=== PATIENT | male | born 1970 | race Caucasian/White ===

== ENCOUNTER 2019-11-20 15:59 | Emergency (ER) | payer BC ==
[2019-11-20 16:07] VITALS: TEMP 97.9
[2019-11-20 17:22] VITALS: RESP 20
--- NOTE | 2019-11-20 17:27 | XR ---
EXAMINATION TYPE: XR chest 1V DATE OF EXAM: 11/20/2019 COMPARISON: NONE HISTORY: Fever and cough TECHNIQUE: Single view FINDINGS: There is no heart failure nor confluent pneumonic infiltrate. Costophrenic angles are clear . Bony thorax is intact. Heart size is normal. IMPRESSION: No active cardiopulmonary disease. Normal heart.
--- NOTE | 2019-11-20 17:42 | ED ---
General Adult HPI - General Chief complaint: Shortness of Breath Stated complaint: fever/cough/SOB Time Seen by Provider: 11/20/19 16:11 Source: patient, RN notes reviewed, old records reviewed Mode of arrival: ambulatory Limitations: no limitations - History of Present Illness Initial comments: 49-year-old male patient presents to ED for evaluation of shortness of breath. Patient put the last 5 days she's been having coughing or shortness of breath. Patient was tested by his primary care provider on Saturday for coronavirus. Patient reports that he has a pulse ox at home and when he is walking around [place]. He Was Then Advised Come to ER by His Primary Care Provider. Patient Denies Any Chest Pain. Reports That upon arrival to shortness of breath is significantly improved and he does not believe he needs to be here. Systemic: Pt denies fatigue, fever/chills, rash. Pt denies weakness, night sweats, weight loss. Neuro: Pt denies headache, visual disturbances, syncope or pre-syncope. HEENT: Pt denies ocular discharge or irritation, otalgia, rhinorrhea, pharyngitis or notable lymphadenopathy. Cardiopulmonary: Pt denies chest pain, heart palpitations, dyspnea on exertion. Abdominal/GI: Pt denies abdominal pain, n/v/d. : Pt denies dysuria, burning w/ urination, frequency/urgency. Denies new onset urinary or bowel incontinence. MSK: Pt denies myalgia, loss of strength or function in extremities. Neuro: Pt denies new onset weakness, paresthesias. - Related Data Previous Rx's Medication Instructions Recorded Albuterol Inhaler [Ventolin Hfa 1 - 2 puff INHALATION Q4-6H PRN #1 11/20/19 Inhaler] inhaler Allergies Allergy/AdvReac Type Severity Reaction Status Date / Time No Known Allergies Allergy Verified 11/20/19 16:07 Review of Systems ROS Statement: Those systems with pertinent positive or pertinent negative responses have been documented in the HPI. ROS Other: All systems not noted in ROS Statement are negative. Past Medical History Past Medical History: No Reported History Additional Past Surgical History / Comment(s): 5 surgerys on left shoulder Past Psychological History: No Psychological Hx Reported Smoking Status: Former smoker Past Alcohol Use History: Occasional Past Drug Use History: None Reported General Exam - General Exam Comments Initial Comments: Constitutional: NAD, AOX3, Pt has pleasant affect. HEENT: NC/AT, trachea midline, neck supple, no lymphadenopathy. Posterior pharynx non erythematous, without exudates. External ears appear normal, without discharge. Mucous membranes moist. Eyes PERRLA, EOM intact. There is no scleral icterus. No pallor noted. Cardiopulmonary: RRR, no murmurs, rubs or gallops, no JVD noted. Mild wheezing noted posterior cowart.. No peripheral edema. Abdominal exam: Abdomen soft and non-distended. Abdomen non-tender to palpation in all 4 quadrants. Bowel sounds active in LLQ. No hepatosplenomegaly. No ecchymosis Neuro: CN II-XII grossly intact. No nuchal rigidity. No raccon eyes, no maciel sign, no hemotympanum. No cervical spinal tenderness. MSK: No posterior calf tenderness bilaterally, homans sign negative bilaterally. Posterior tibialis and radial pulse +2 bilaterally. Sensation intact in upper and lower extremities. Full active ROM in upper and lower extremities, 5/5 stregnth. Limitations: no limitations Course Vital Signs 11/20/19 11/20/19 11/20/19 16:01 16:07 17:07 Temperature 97.9 F Pulse Rate 83 78 Respiratory 16 20 20 Rate Blood Pressure 162/81 152/71 O2 Sat by Pulse 97 96 Oximetry 11/20/19 11/20/19 17:56 17:59 Temperature Pulse Rate 75 Respiratory 20 20 Rate Blood Pressure 132/81 O2 Sat by Pulse 96 Oximetry Medical Decision Making - Medical Decision Making 49-year-old male patient presents to ED for evaluation of shortness of breath. Patient put the last 5 days she's been having coughing or shortness of breath. Patient was tested by his primary care provider on Saturday for coronavirus. Patient reports that he has a pulse ox at home and when he is walking around [place]. He Was Then Advised Come to ER by His Primary Care Provider. Patient Denies Any Chest Pain. Reports That upon arrival to shortness of breath is significantly improved and he does not believe he needs to be here. Patient will send her stable, afebrile. Pulse oxygenation at rest and ambulatory is 96 present. Patient continues to deny any shortness of breath. Patient declines breathing treatment here. Chest x-ray did not display any acute process. Patient will be discharged will continue to self quarentine himself and will follow up with primary care provider with results of this test and return to ER if condition worsens. Case discussed with Dr. Black. Disposition Clinical Impression: Cough, Fever, Suspected [place] coronavirus infection Disposition: HOME SELF-CARE Condition: Stable Instructions (If sedation given, give patient instructions): Acute Cough (ED) Additional Instructions: Follow-up with primary care provider tomorrow via telephone. Continue to monitor symptoms at home. Use Tylenol as needed for fever. Use inhaler as needed for wheezing. Self isolated for the next 14 days. Return to ER if condition worsens. Prescriptions: Albuterol Inhaler [Ventolin Hfa Inhaler] 1 - 2 puff INHALATION Q4-6H PRN #1 inhaler PRN Reason: Cough Is patient prescribed a controlled substance at d/c from ED?: No Referrals: Abdelrahman De La Fuente MD [Primary Care Provider] - 1-2 days
[2019-11-20 17:56] VITALS: BP 132/81; PULSE 75
== END 2019-11-20 18:00 | disposition home or self-care (01) ==
LOC: EC 15:59
DX: R05 Cough (principal); R50.9 Fever, unspecified; R06.02 Shortness of breath; Z20.828 Contact with and (suspected) exposure to other viral communicable diseases; Z87.891 Personal history of nicotine dependence
CPT/HCPCS: 71045; 99285

== ENCOUNTER → 2021-10-20 | Outpatient (CLI) | payer BC ==
--- NOTE | 2021-10-20 19:51 | CT ---
EXAMINATION TYPE: CT abdomen pelvis wo con DATE OF EXAM: 10/20/2021 COMPARISON: None HISTORY: RLQ pain CT DLP: 607.8 mGycm Automated exposure control for dose reduction was used. Images obtained from the diaphragm to the floor the pelvis with oral contrast only. There is subsegmental atelectasis at the lung bases. Heart size is normal. There are no hilar masses. Costophrenic angles are clear. There is no pericardial effusion. Liver spleen and stomach pancreas and gallbladder appear normal. The bile ducts are not dilated. There is no adrenal mass. Kidneys have normal size. There is no hydronephrosis. The ureters are not d ilated. There is no retroperitoneal adenopathy. Bladder distends smoothly. There is no inguinal herni a. Appendix is posterior and appears normal. There is no mesenteric edema. There is no ascites or nguyễn e air. There is no bowel obstruction. There is no evidence of a pelvic mass. Lumbar vertebrae have normal alignment. There is no acute compression fracture. Posterior elements ar e intact. There is 15% anterior wedging of L1 vertebra that appears old. The bony pelvis is intact. T he hip joints are intact. IMPRESSION: Mild subsegmental atelectasis at the lung bases. No acute abnormality within the abdomen and pelvis. Normal appendix. No renal stone or obstruction.
== END | disposition home or self-care (01) ==
LOC: RADCTMAIN 16:24
PROVIDERS: ATTEND Family Medicine
DX: R10.31 Right lower quadrant pain (principal); J98.11 Atelectasis
CPT/HCPCS: 74176

== ENCOUNTER 2021-11-30 09:06 | Day surgery (SDC) | payer BC ==
[2021-11-28 11:54] VITALS: BMI 25.5
[~2021-11-30 09:06] MED LIST: LACTATED RINGERS 1,000 ML IV SCH
[2021-11-30 10:01] VITALS: RESP 16; TEMP 97.6
[2021-11-30] MEDS ORDERED: LIDOCAINE 1% (10MG/ML) FOR IV START INTRADERMA ONE (10:13)
[2021-11-30] MEDS ORDERED: PROPOFOL 10 MG/ML 20 ML VIAL IV ONE (10:31)
--- NOTE | 2021-11-30 10:32 | P.GSHP ---
History of Present Illness H&P Date: 11/30/21 Chief Complaint: GI bleed. Is a 51-year-old male presents today for colonoscopy. Patient's had issues with GI bleed. Past Medical History Past Medical History: No Reported History Additional Past Medical History / Comment(s): hx recent elevated BS History of Any Multi-Drug Resistant Organisms: None Reported Past Surgical History: Orthopedic Surgery Additional Past Surgical History / Comment(s): 5 surgerys on left shoulder Past Anesthesia/Blood Transfusion Reactions: No Reported Reaction Smoking Status: Former smoker - Past Family History Mother Family Medical History: No Reported History Medications and Allergies Home Medications Medication Instructions Recorded Confirmed Type Ibuprofen [Motrin Ib] 200 - 800 mg PO DIRECTED PRN 11/28/21 11/30/21 History Allergies Allergy/AdvReac Type Severity Reaction Status Date / Time No Known Allergies Allergy Verified 11/30/21 09:57 Surgical - Exam Vital Signs Temp Pulse Resp BP Pulse Ox 97.6 F 84 16 119/82 95 11/30/21 09:56 11/30/21 09:56 11/30/21 09:56 11/30/21 09:56 11/30/21 09:56 - General well developed, well nourished, no distress - Eyes PERRL - ENT normal pinna - Neck no masses - Respiratory normal expansion - Cardiovascular Rhythm: regular - Abdomen Abdomen: soft, non tender Assessment and Plan Assessment: GI bleed. We'll perform colonoscopy
--- NOTE | 2021-11-30 10:42 | P.OP ---
Date of Procedure: 11/30/21 Preoperative Diagnosis: GI bleed Postoperative Diagnosis: Internal hemorrhoids Procedure(s) Performed: Colonoscopy Anesthesia: MAC Surgeon: Grabiel Scott Pathology: none sent Condition: stable Disposition: PACU Description of Procedure: The patient's placed on the endoscopy table in the lateral position. He received IV sedation. Digital rectal exam was performed. This revealed internal hemorrhoids. Flexible colonoscope was then placed patient anus and passed throughout the entire colon. The ileocecal valve was visualized. Cecum, ascending and transverse colon appeared normal. The descending and sigmoid colon appeared normal. The scope was then brought back the rectum and this appeared normal. The scope withdrawn for patient.
[2021-11-30 11:09] VITALS: BP 138/79; PULSE 65
== END 2021-11-30 11:24 | disposition home or self-care (01) ==
LOC: ORWHC2ENDO 09:06
PROVIDERS: ATTEND Surgery
DX: K64.8 Other hemorrhoids (principal); Z98.890 Other specified postprocedural states; Z87.891 Personal history of nicotine dependence
CPT/HCPCS: 45378; J2704

== ENCOUNTER 2023-06-29 16:18 | Observation (INO) | payer BC, MEDICARE ==
[2023-06-29] MEDS ORDERED: KETOROLAC 15 MG/ML 1 ML VIAL IVP STA (16:40)
[2023-06-29] MEDS ORDERED: MORPHINE SULFATE 4 MG/ML SYRINGE IVP STA (16:40)
[2023-06-29] MEDS ORDERED: SODIUM CHLORIDE 0.9% 1,000 ML IV STA (16:40)
[2023-06-29] MEDS ORDERED: ONDANSETRON 4 MG/2 ML VIAL IVP STA (16:40)
--- NOTE | 2023-06-29 16:43 | ED ---
Abdominal Pain HPI - General Chief Complaint: Abdominal Pain Stated Complaint: Abd pain Time Seen by Provider: 06/29/23 16:32 Source: patient, family Mode of arrival: ambulatory Limitations: no limitations - History of Present Illness Initial Comments: 53-year-old male with no significant past medical history no prior abdominal surgeries presenting to the ED with a chief complaint of abdominal pain. 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 Reports that he went to sit down and states pain continued to increase in severity prompted presentation to the ED for further evaluation. Associated nausea. Patient also notes for the past week has had urinary urgency however denies dysuria, hematuria. No changes in bowel habits. No fever or chills. No chest pain or shortness of breath. No other complaints. - Related Data Home Medications Medication Instructions Recorded Confirmed Ibuprofen [Motrin Ib] 200 - 800 mg PO DIRECTED PRN 11/28/21 11/30/21 Allergies Allergy/AdvReac Type Severity Reaction Status Date / Time No Known Allergies Allergy Verified 11/30/21 09:57 Review of Systems ROS Statement: Those systems with pertinent positive or pertinent negative responses have been documented in the HPI. ROS Other: All systems not noted in ROS Statement are negative. Past Medical History Past Medical History: No Reported History Additional Past Medical History / Comment(s): hx recent elevated BS History of Any Multi-Drug Resistant Organisms: None Reported Past Surgical History: Orthopedic Surgery Additional Past Surgical History / Comment(s): 5 surgerys on left shoulder Past Anesthesia/Blood Transfusion Reactions: No Reported Reaction Past Psychological History: No Psychological Hx Reported Smoking Status: Former smoker - Past Family History Mother Family Medical History: No Reported History General Exam Limitations: no limitations General appearance: alert, in distress Neck exam: Present: normal inspection Respiratory exam: Present: normal lung sounds bilaterally Cardiovascular Exam: Present: regular rate, normal rhythm GI/Abdominal exam: Present: tenderness (Tenderness to palpation in the right lower quadrant with rebound, guarding, rigidity. Positive Serrato, psoas, obturator sign.) Neurological exam: Present: alert, oriented X3 Skin exam: Present: warm, dry Course Vital Signs 06/29/23 16:25 Temperature 97.9 F Pulse Rate 92 Respiratory 20 Rate Blood Pressure 157/93 O2 Sat by Pulse 96 Oximetry Medical Decision Making - Medical Decision Making Was pt. sent in by a medical professional or institution (RAQUEL Donnelly, WEATHER ANALYST, urgent care, hospital, or correction...) When possible be specific @ -No Did you speak to anyone other than the patient for history (EMS, parent, family, police, friend...)? What history was obtained from this source @ -No Did you review nursing and triage notes (agree or disagree)? Why? @ -I reviewed and agree with nursing and triage notes Were old charts reviewed (outside hosp., previous admission, EMS record, old EKG, old radiological studies, urgent care reports/EKG's, correction records)? Report findings @ -No old charts were reviewed Differential Diagnosis (chest pain, altered mental status, abdominal pain women, abdominal pain men, vaginal bleeding, weakness, fever, dyspnea, syncope, headache, dizziness, GI bleed, back pain, seizure, CVA, palpatations, mental health, musculoskeletal)? @ -Differential Abdominal Pain Men: Appendicitis, cholecystitis, diverticulosis, ischemic bowel, pancreatitis, hepatitis, UTI, gastroenteritis, AAA, incarcerated hernia, bowel obstruction, constipation, inflammatory bowel, hepatitis, peptic ulcer disease, splenic infarction, perforated viscus, testicular torsion, this is not meant to be an all-inclusive list EKG interpreted by me (3pts min.). @ -As above X-rays interpreted by me (1pt min.). @ -None done CT interpreted by me (1pt min.). @ -CT abdomen and pelvis showed findings suggestive for acute appendicitis in the mid to distal portion with adjacent inflammatory changes however no abscess formation or free air identified. U/S interpreted by me (1pt. min.). @ -None done What testing was considered but not performed or refused? (CT, X-rays, U/S, labs)? Why? @ -None What meds were considered but not given or refused? Why? @ -None Did you discuss the management of the patient with other professionals (professionals i.e. RAQUEL Donnelly, WEATHER ANALYST, lab, RT, psych nurse, social services coordinator, food chemist, teacher, senior major gifts officer, case management social worker)? Give summary @ -Case discussed with Dr. Frank Bennett. Patient will be admitted nothing by mouth for surgery. Will start patient on IV antibiotics. Was smoking cessation discussed for >3mins.? @ -No Was critical care preformed (if so, how long)? @ -No Were there social determinants of health that impacted care today? How? (Homele ssness, low income, unemployed, alcoholism, drug addiction, transportation, low edu. Level, literacy, decrease access to med. care, assisted, rehab)? @ -No Was there de-escalation of care discussed even if they declined (Discuss DNR or withdrawal of care, Hospice)? DNR status @ -No What co-morbidities impacted this encounter? (DM, HTN, Smoking, COPD, CAD, Cancer, CVA, ARF, Chemo, Hep., AIDS, mental health diagnosis, sleep apnea, morbid obesity)? @ -None Was patient admitted / discharged? Hospital course, mention meds given and route, prescriptions, significant lab abnormalities, going to OR and other pertinent info. @ -Admission 43-year-old male with no significant past medical history presenting to the ED with acute onset of right lower quadrant pain with associated nausea today. CT of the abdomen and pelvis showed findings suggestive for acute appendicitis in the mid to distal portion with adjacent inflammatory changes however no abscess formation or free air. Patient will be admitted to surgery nothing by mouth. Patient started on IV ceftriaxone and Flagyl. At this time, vital signs stable and afebrile. Discussed plan of care with patient and family who are in agreement. Undiagnosed new problem with uncertain prognosis? @ -No Drug Therapy requiring intensive monitoring for toxicity (Heparin, Nitro, Insulin, Cardizem)? @ -No Were any procedures done? @ -No Diagnosis/symptom? @ -Acute appendicitis Acute, or Chronic, or Acute on Chronic? @ -Acute Uncomplicated (without systemic symptoms) or Complicated (systemic symptoms)? @ -Complicated Side effects of treatment? @ -No Exacerbation, Progression, or Severe Exacerbation? @ -No Poses a threat to life or bodily function? How? (Chest pain, [place], [place], pneumonia, PE, COPD, DKA, ARF, appy, cholecystitis, CVA, Diverticulitis, Homicidal, Suicidal, threat to staff... and all critical care pts) @ -Yes, appendicitis - Lab Data Result diagrams: 06/29/23 16:58 06/29/23 16:58 Lab Results 06/29/23 06/29/23 06/29/23 Range/Units 16:58 16:58 16:58 WBC 15.5 H (3.8-10.6) k/uL RBC 4.81 (4.30-5.90) m/uL Hgb 14.6 (13.0-17.5) gm/dL Hct 41.7 (39.0-53.0) % MCV 86.6 (80.0-100.0) fL MCH 30.3 (25.0-35.0) pg MCHC 34.9 (31.0-37.0) g/dL RDW 13.3 (11.5-15.5) % Plt Count 416 (150-450) k/uL MPV 7.6 Neutrophils % 80 % Lymphocytes % 12 % Monocytes % 6 % Eosinophils % 1 % Basophils % 0 % Neutrophils # 12.4 H (1.3-7.7) k/uL Lymphocytes # 1.9 (1.0-4.8) k/uL Monocytes # 0.9 (0-1.0) k/uL Eosinophils # 0.1 (0-0.7) k/uL Basophils # 0.0 (0-0.2) k/uL PT 9.9 L (10.0-12.5) sec INR 0.9 (<1.2) APTT 26.7 (22.0-30.0) sec Sodium 135 L (137-145) mmol/L Potassium 4.1 (3.5-5.1) mmol/L Chloride 98 (98-107) mmol/L Carbon Dioxide 20 L (22-30) mmol/L Anion Gap 17 mmol/L BUN 13 (9-20) mg/dL Creatinine 0.67 (0.66-1.25) mg/dL Est GFR (CKD-EPI)AfAm >90 (>60 ml/min/1.73 sqM) Est GFR (CKD-EPI)NonAf >90 (>60 ml/min/1.73 sqM) Glucose 266 H (74-99) mg/dL Plasma Lactic Acid Deinlson (0.7-2.0) mmol/L Calcium 10.5 H (8.4-10.2) mg/dL Total Bilirubin 0.7 (0.2-1.3) mg/dL AST 30 (17-59) U/L ALT 41 (4-49) U/L Alkaline Phosphatase 142 H (38-126) U/L Troponin I (0.000-0.034) ng/mL Total Protein 8.0 (6.3-8.2) g/dL Albumin 4.7 (3.5-5.0) g/dL Amylase 45 (30-110) U/L Lipase 82 (23-300) U/L Blood Type Blood Type Confirm Blood Type Recheck Bld Type Recheck Status Antibody Screen Spec Expiration Date 06/29/23 06/29/23 06/29/23 Range/Units 16:58 16:58 16:58 WBC (3.8-10.6) k/uL RBC (4.30-5.90) m/uL Hgb (13.0-17.5) gm/dL Hct (39.0-53.0) % MCV (80.0-100.0) fL MCH (25.0-35.0) pg MCHC (31.0-37.0) g/dL RDW (11.5-15.5) % Plt Count (150-450) k/uL MPV Neutrophils % % Lymphocytes % % Monocytes % % Eosinophils % % Basophils % % Neutrophils # (1.3-7.7) k/uL Lymphocytes # (1.0-4.8) k/uL Monocytes # (0-1.0) k/uL Eosinophils # (0-0.7) k/uL Basophils # (0-0.2) k/uL PT (10.0-12.5) sec INR (<1.2) APTT (22.0-30.0) sec Sodium (137-145) mmol/L Potassium (3.5-5.1) mmol/L Chloride (98-107) mmol/L Carbon Dioxide (22-30) mmol/L Anion Gap mmol/L BUN (9-20) mg/dL Creatinine (0.66-1.25) mg/dL Est GFR (CKD-EPI)AfAm (>60 ml/min/1.73 sqM) Est GFR (CKD-EPI)NonAf (>60 ml/min/1.73 sqM) Glucose (74-99) mg/dL Plasma Lactic Acid Denilson 2.3 H* (0.7-2.0) mmol/L Calcium (8.4-10.2) mg/dL Total Bilirubin (0.2-1.3) mg/dL AST (17-59) U/L ALT (4-49) U/L Alkaline Phosphatase (38-126) U/L Troponin I <0.012 (0.000-0.034) ng/mL Total Protein (6.3-8.2) g/dL Albumin (3.5-5.0) g/dL Amylase (30-110) U/L Lipase (23-300) U/L Blood Type Blood Type Confirm O Positive Blood Type Recheck Bld Type Recheck Status Antibody Screen Spec Expiration Date 06/29/23 Range/Units 17:00 WBC (3.8-10.6) k/uL RBC (4.30-5.90) m/uL Hgb (13.0-17.5) gm/dL Hct (39.0-53.0) % MCV (80.0-100.0) fL MCH (25.0-35.0) pg MCHC (31.0-37.0) g/dL RDW (11.5-15.5) % Plt Count (150-450) k/uL MPV Neutrophils % % Lymphocytes % % Monocytes % % Eosinophils % % Basophils % % Neutrophils # (1.3-7.7) k/uL Lymphocytes # (1.0-4.8) k/uL Monocytes # (0-1.0) k/uL Eosinophils # (0-0.7) k/uL Basophils # (0-0.2) k/uL PT (10.0-12.5) sec INR (<1.2) APTT (22.0-30.0) sec Sodium (137-145) mmol/L Potassium (3.5-5.1) mmol/L Chloride (98-107) mmol/L Carbon Dioxide (22-30) mmol/L Anion Gap mmol/L BUN (9-20) mg/dL Creatinine (0.66-1.25) mg/dL Est GFR (CKD-EPI)AfAm (>60 ml/min/1.73 sqM) Est GFR (CKD-EPI)NonAf (>60 ml/min/1.73 sqM) Glucose (74-99) mg/dL Plasma Lactic Acid Denilson (0.7-2.0) mmol/L Calcium (8.4-10.2) mg/dL Total Bilirubin (0.2-1.3) mg/dL AST (17-59) U/L ALT (4-49) U/L Alkaline Phosphatase (38-126) U/L Troponin I (0.000-0.034) ng/mL Total Protein (6.3-8.2) g/dL Albumin (3.5-5.0) g/dL Amylase (30-110) U/L Lipase (23-300) U/L Blood Type O Positive Blood Type Confirm Blood Type Recheck No Previous Record Bld Type Recheck Status CABO Indicated Antibody Screen NEGATIVE Spec Expiration Date 07/02/20230 - EKG Data EKG Comments: EKG shows a normal sinus rhythm at [address] or T-wave changes. TX 128, QRS 112, QT/QTc 372/407. Disposition Referrals: Abdelrahman De La Fuente MD [Primary Care Provider] - 1-2 days
[2023-06-29 17:19] LABS: Basophils % (A) 0 %; Eosinophils # (A) 0.1 k/uL (0-0.7); Eosinophils % (A) 1 %; HCT 41.7 % (39.0-53.0); HGB 14.6 gm/dL (13.0-17.5); Lymphocytes # (A) 1.9 k/uL (1.0-4.8); Lymphocytes % (A) 12 %; MCH 30.3 pg (25.0-35.0); MCHC 34.9 g/dL (31.0-37.0); MCV 86.6 fL (80.0-100.0); Mean Platelet Volume 7.6; Monocytes # (A) 0.9 k/uL (0-1.0); Monocytes % (A) 6 %; Neutrophils # (A) 12.4 k/uL (1.3-7.7); Neutrophils % (A) 80 %; Platelet Count 416 k/uL (150-450); RBC 4.81 m/uL (4.30-5.90); RDW 13.3 % (11.5-15.5); WBC 15.5 k/uL (3.8-10.6)
[2023-06-29 17:24] LABS: INR 0.9 (<1.2); Partial Thromboplastin Time 26.7 sec (22.0-30.0); Prothrombin Time 9.9 sec (10.0-12.5)
[2023-06-29 17:33] LABS: ALT 41 U/L (4-49); AST 30 U/L (17-59); African American GFR (CKD) >90 (>60 ml/min/1.73 sqM); Albumin 4.7 g/dL (3.5-5.0); Alkaline Phosphatase 142 U/L (38-126); Amylase 45 U/L (30-110); Anion Gap 17 mmol/L; Blood Urea Nitrogen 13 mg/dL (9-20); Calcium 10.5 mg/dL (8.4-10.2); Carbon Dioxide 20 mmol/L (22-30); Chloride 98 mmol/L (98-107); Glucose 266 mg/dL (74-99); Lipase 82 U/L (23-300); Non-African American GFR(CKD) >90 (>60 ml/min/1.73 sqM); Potassium 4.1 mmol/L (3.5-5.1); Sodium 135 mmol/L (137-145); Total Bilirubin 0.7 mg/dL (0.2-1.3)
--- NOTE | 2023-06-29 18:36 | CT ---
EXAMINATION TYPE: CT abdomen pelvis wo con DATE OF EXAM: 06/29/2023 COMPARISON: 10/20/2021 INDICATION: RLQ abdominal pain onset this morning DLP: 821.9 mGycm, Automated exposure control for dose reduction was used. CONTRAST: 100 mL of Isovue 300. Study performed without Oral Contrast TECHNIQUE: Axial images were obtained from above the diaphragm to the pubic rami in the axial plane a t 5 mm thick sections. Reconstructed images are reviewed on the computer in the coronal plane. FINDINGS: Limited CT sections are obtained the lung bases. The lung bases are clear. CT ABDOMEN: Liver: Moderate fatty infiltration throughout the liver. Liver enlarged. Spleen: Normal Pancreas: Normal Adrenal glands: Left adrenal gland is thickened at 1.3 cm. This is stable from comparison. Right adre nal gland is normal. Gallbladder: Normal Kidneys: No masses are evident. No hydronephrosis is present. No cysts are present. No renal stone s are evident. Aorta: Vascular calcification is within the aorta. Inferior vena cava: Normal. CT PELVIS: Loops of bowel within the abdomen and pelvis are normal. This study is without oral contrast limi ts bowel evaluation. Appendix: The appendix is dilated measuring 1.2 cm. Mild adjacent inflammatory changes are present. F indings are suggestive of mid to distal acute appendicitis. Urinary bladder: Normal. Genitourinary structures: There is slightly prominent Osseous structures: No suspicious lytic or sclerotic lesions. IMPRESSION: 1. Findings suggestive for acute appendicitis in the mid to distal portion with adjacent inflammator y changes. No abscess formation or free air is identified.
[2023-06-29] MEDS ORDERED: HYDROmorphone 1 MG/ML 1 ML SYRINGE IVP STA (18:44)
[2023-06-29] MEDS ORDERED: HYDROmorphone 1 MG/ML 1 ML SYRINGE IVP PRN (19:05)
[2023-06-29] MEDS ORDERED: NALOXONE 0.4 MG/ML 1 ML VIAL IV PRN (19:05)
[2023-06-29] MEDS ORDERED: HYDROmorphone 0.5 MG/0.5 ML SYRINGE IVP PRN (19:05)
[2023-06-29] MEDS ORDERED: ONDANSETRON 4 MG/2 ML VIAL IVP PRN (19:05)
[2023-06-29] MEDS ORDERED: ACETAMINOPHEN TAB 325 MG TAB PO PRN (19:05)
[2023-06-29] MEDS ORDERED: cefTRIAXone IN SWFI 1,000 MG/10 ML SYRINGE IVP STA (19:08)
[2023-06-29] MEDS ORDERED: metroNIDAZOLE-NS PMX 500 MG in SALINE 1 100ML.BAG IVPB STA (19:08)
[2023-06-29] MEDS: SODIUM CHLORIDE 0.9% 1,000 ML IV SCH (19:43)
--- NOTE | 2023-06-29 20:34 | P.CON ---
Consult Note - . 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 Positive for slight nausea no emesis Past medical history; arthritis left shoulder, denies any known hypertension, d iabetes, heart disease Past surgical history; multiple procedures on left shoulder Medications; none ALLERGIES: NO KNOWN DRUG ALLERGIES Habits; tobacco, quit approximately 2 years ago. Alcohol uses occasionally, denies any use of marijuana Physical exam: HEENT: Normocephalic, sclerae nonicteric Chest: Clear to auscultation Heart: Regular rate and rhythm Abdomen: slightly protuberant, soft, mild diffuse tenderness greatest in the right lower quadrant. Extremities: No edema, strength 5+ all extremities Neuro: Alert and oriented 52-year-old gentleman with acute appendicitis. Broad-spectrum antibiotics, nothing by mouth Plan for laparoscopic possible open appendectomy this evening.
[2023-06-29] MEDS ORDERED: PHENYLEPHRINE-0.9% NACL SYG 1,000 MCG/10 ML SYRINGE ONE (20:59)
[2023-06-29] MEDS ORDERED: NEOSTIGMINE 1 MG/ML 10 ML VIAL ONE (20:59)
[2023-06-29] MEDS ORDERED: GLYCOPYRROLATE 0.2 MG/ML 2 ML VIAL ONE (20:59)
[2023-06-29] MEDS ORDERED: ROCURONIUM 10 MG/ML (5 ML VIAL) IV ONE (20:59)
[2023-06-29] MEDS ORDERED: SUCCINYLCHOLINE CHLORIDE 200 MG/10 ML VIAL IV ONE (20:59)
[2023-06-29] MEDS ORDERED: MIDAZOLAM 2 MG/2 ML VIAL ONE (20:59)
[2023-06-29] MEDS ORDERED: IV FLUID CONTINUATION 1,000 ML IV ONE (20:59)
[2023-06-29] MEDS ORDERED: fentaNYL (PF) 50 MCG/ML 2 ML AMP ONE (20:59)
[2023-06-29] MEDS ORDERED: LIDOCAINE 1% INJ 10MG/ML (20 ML MDV) ONE (20:59)
[2023-06-29] MEDS ORDERED: PROPOFOL 10 MG/ML 20 ML VIAL IV ONE (20:59)
[2023-06-29 21:08] LABS: Appearance,Urine Clear (Clear); Bilirubin,Urine Negative (Negative); Blood,Urine Small (Negative); Color,Urine Yellow; Glucose,Urine (UA) 4+ (Negative); Hyaline Casts,Urine 1 /lpf (0-2); Ketones,Urine Trace (Negative); Leukocyte Esterase,Urine Negative (Negative); Mucus,Urine Few /hpf; Nitrite,Urine Negative (Negative); Protein,Urine 2+ (Negative); RBC,Urine 6 /hpf (0-5); Specific Gravity,Urine 1.028 (1.001-1.035); Squamous Epithelial Cell,Urine <1 /hpf (0-4); Urobilinogen,Urine <2.0 mg/dL (<2.0); WBC,Urine <1 /hpf (0-5)
[2023-06-29] MEDS ORDERED: BUPIVACAINE (PF) 0.25% 30 ML VIAL SQ ONE (21:22)
[2023-06-29] MEDS ORDERED: LACTATED RINGERS 1,000 ML IV ONE (21:46)
[2023-06-29] MEDS ORDERED: HYDROcodone/APAP 5-325MG 1 EACH TAB PO PRN (22:38)
[2023-06-29] MEDS ORDERED: LACTATED RINGERS 1,000 ML IV SCH (22:45)
--- NOTE | 2023-06-29 22:53 | P.OP ---
Date of Procedure: 06/29/23 Preoperative Diagnosis: Acute appendicitis Postoperative Diagnosis: Acute appendicitis Procedure(s) Performed: Laparoscopic appendectomy Anesthesia: MAG Surgeon: Donald Marie Estimated Blood Loss (ml): 10 IV fluids (ml): 1,000 Urine output (ml): 50 Pathology: other Condition: stable Disposition: floor Indications for Procedure: Patient is a 53-year-old male who presented to the emergency department earlier today with a 1 day history of lower abdominal pain. Patient's workup in the emergency department including CBC and CAT scan of the abdomen were consistent with acute appendicitis. The nature of appendicitis and its medical and surgical treatment were discussed with the patient including potential risks and benefits. These included but were not limited to infection, bleeding, and injury to adjacent structures. After careful consideration patient decided to proceed with appendectomy. Operative Findings: Acutely inflamed appendix without evidence of rupture Description of Procedure: Patient was brought to the operating room, a preoperative timeout was taken, preoperative antibiotics administered. Patient was placed on the table in the supine position with the left arm tucked and well-padded. General anesthesia and monitoring were provided per the anesthesia department. A preoperative urinary catheter was placed. The abdomen was widely prepped and draped in a sterile fashion. Pneumoperitoneum was established with the Veress needle in the left upper quadrant. Entry was then gained here with a 5 mm optical trocar. Quick inspection demonstrated some hepatic enlargement with evidence of fatty change. A 5 mm trocar was then placed in the lower midline under direct vision. Using a grasper the cecum was visualized and there was evidence of appendiceal inflammation. A 12 mm trocar was then placed in the left lower abdomen. Using graspers the appendix was visualized and lifted anteriorly. Using a LigaSure the mesoappendix was divided down to the base. Base was then transected with a JAYA stapling device. Appendix was placed in an Endobag and brought out through the larger port site. This was handed off the table to be examined by p athology. The trocar was replaced in the surgical field and inspected, good hemostasis was observed. The area was briefly irrigated with sterile saline and all free fluid aspirated out. Pneumoperitoneum was then released and the trochars removed. The fascia at the larger trocar site was reapproximated with 0 Vicryl suture on a UR 6 needle. Skin closed at all sites with subcuticular 4- 0 Monocryl and Dermabond placed on the skin. At the end of the procedure were correct, patient was extubated and taken to recovery in stable condition.
[2023-06-29 23:38] VITALS: RESP 17
[2023-06-30] MEDS: SODIUM CHLORIDE 0.9% 1,000 ML IV SCH (06:41)
[2023-06-30 08:02] VITALS: BP 147/84; PULSE 71; TEMP 97.7
[2023-06-30 08:39] LABS: HCT 35.6 % (39.0-53.0); HGB 12.1 gm/dL (13.0-17.5); MCH 30.3 pg (25.0-35.0); MCV 89.2 fL (80.0-100.0); Mean Platelet Volume 7.4; Platelet Count 328 k/uL (150-450); RDW 13.7 % (11.5-15.5); WBC 9.8 k/uL (3.8-10.6)
--- NOTE | 2023-06-30 09:54 | P.DS ---
Providers Date of admission: 06/29/23 18:54 Expected date of discharge: 06/30/23 Attending physician: Donald Marie MD Consults: 06/29/23 19:05 Consult Physician Urgent Consulting Provider: Meghna Holland Consult Reason/Comments: Acute appy Do you want consulting provider notified?: Yes Primary care physician: Abdelrahman De La Fuente Hospital Course: He is feeling better. No further abdominal pain. Incisions are clean, dry and intact. He feels well. Stable for discharge. Plan - Discharge Summary Discharge Rx Participant: No New Discharge Prescriptions: No Action No Known Home Medications Discharge Medication List No Known Home Medications 06/29/23 [History] Follow up Appointment(s)/Referral(s): Abdelrahman De La Fuente MD [Primary Care Provider] - 1-2 days
== END 2023-06-30 10:10 | disposition home or self-care (01) ==
LOC: EC 16:18 → 5NMEDONC 18:54 → INTOOBSV 18:54 → 5NMEDONC 20:58 → UNDODISIN 06-30 10:10
PROVIDERS: ADMIT Surgery; ATTEND Surgery
PROC: 0DTJ4ZZ Resection of Appendix, Percutaneous Endoscopic Approach (ICD-10-PCS; principal; 2023-06-29 21:00)
DX: K35.80 Unspecified acute appendicitis (principal); K76.0 Fatty (change of) liver, not elsewhere classified; M19.012 Primary osteoarthritis, left shoulder; Z98.890 Other specified postprocedural states; Z87.891 Personal history of nicotine dependence
CPT/HCPCS: 96361; 96374; 96375; 99285; 36415; 93005; 86900; 86901; 88304; 80053; 82150; 83605; 83690; 84484; 85025; 85027; 85610; 85730; 86850; 81001; 87040; 74176; 44970; G0378 ×2; J2250; J0330; J2270; J2710; J2405; J2001; J0696; J3010; J1170 ×2; J1885; J2704; J2371; J1836; J0665

== ENCOUNTER → 2024-04-07 | Outpatient (CLI) | payer OTHER ==
--- NOTE | 2024-04-29 13:28 | MR ---
Site ID [facility] Patient Beto Clements ID [id number] DOB EXAMINATION TYPE: MR brain wo con DATE OF EXAM: 04/11/2024 4:50 PM CLINICAL INDICATION: S06.0X1D concussion w/loss of consciousness. Headaches, mid back pain COMPARISON: THIS EXAM WAS READ DURING PACS DOWNTIME, NO PRIORS AVAILABLE.. TECHNIQUE: Multi planar, multi sequence imaging was performed through the brain including: T1, T2, In version recovery, Diffusion weighted imaging, and gradient echo imaging. No gadolinium was given. FINDINGS: The cruz-white junctions, ventricular system, basal cisterns appear unremarkable. Midline structures show no abnormality. Diffusion-weighted imaging shows no evidence of restricted diffusion. The suscep tibility weighted images do not reveal any evidence for micro-hemorrhage. The bone marrow signal is within normal limits. Paranasal sinuses and mastoid air cells: No significant paranasal sinus disease. Visualized orbits: Orbital contents are intact. IMPRESSION: 1. No evidence of intracranial mass or acute/subacute infarct.
== END | disposition home or self-care (01) ==
LOC: RADMRIMAIN 07:45
PROVIDERS: ATTEND Family Medicine
DX: S06.0X1D Concussion with loss of consciousness of 30 minutes or less, subsequent encounter (principal)
CPT/HCPCS: 70551